=== PATIENT | female | born 1990 | race Caucasian/White ===

== ENCOUNTER 2021-10-26 08:00 | Observation (INO) | payer MEDICARE ==
[~2021-10-26] VITALS: Ht 162.6 cm; Wt 85.0 kg
[2021-10-26 08:24] LABS: COLLECTION METHOD CLEAN CATCH
[2021-10-26 08:31] LABS: BASO # 0.1 K/mm3 (0.0-0.2); BASO % 0.4 % (0.0-2.0); EOS # 0.1 K/mm3 (0.0-0.7); GRAN # 9.7 K/mm3 (1.4-6.5); GRAN % 78.1 % (42.2-75.2); HEMATOCRIT 38.9 % (37.0-47.0); HEMOGLOBIN 13.5 g/dl (12.5-16.0); LYMPH # 1.9 K/mm3 (1.2-3.4); LYMPH % 15.4 % (20.0-51.0); MEAN CELL VOLUME 89 fl (80.0-100.0); MEAN CORPUSCULAR HEMOGLOBIN 31 pg (27.0-31.0); MEAN CORPUSCULAR HGB CONC 35 g/dl (33.0-37.0); MEAN PLATELET VOLUME 9.9 fl (7.4-10.4); MONO # 0.6 K/mm3 (0.1-0.6); MONO % 4.7 % (1.7-9.3); PLATELET COUNT 240 K/mm3 (130-400); RED BLOOD COUNT 4.36 M/mm3 (4.10-5.30); REDCELL DISTRIBUTION WIDTH-CV 12.3 % (11.5-14.5)
[2021-10-26 08:36] LABS: MUCOUS Present (NOT PRESENT); PH 7 (5-8); URINE APPEARANCE Clear (CLEAR/HAZY); URINE BACTERIA None Seen (NONE SEEN); URINE BILIRUBIN Negative (NEGATIVE); URINE BLOOD Negative (NEGATIVE); URINE COLOR Yellow (YELLOW); URINE GLUCOSE Negative (NEGATIVE); URINE KETONE Negative (NEGATIVE); URINE LEUKOCYTE ESTERASE Trace (NEGATIVE); URINE NITRATE Negative (NEGATIVE); URINE PROTEIN(semi-quant) Negative (NEGATIVE); URINE RBC None Seen /hpf (0-2); URINE UROBILINOGEN Negative (NEGATIVE)
[2021-10-26 09:08] LABS: ALBUMIN 3.9 gm/dL (3.5-5.0); BILIRUBIN,TOTAL 0.9 mg/dL (0.2-1.2); CALCIUM 9.2 mg/dL (8.4-10.2); CREATININE, serum 0.75 mg/dL (0.57-1.11); POTASSIUM 3.9 mmol/L (3.5-4.5); TOTAL PROTEIN 7.6 gm/dL (6.2-8.1)
[2021-10-26 12:04] LABS: LACTATE DEHYDROGENASE 312 U/L (125-220); TRIGLYCERIDE 123 mg/dL (0-149)
[2021-10-26 14:54] VITALS: BP 111/66; PULSE 89; TEMP 98.8
[2021-10-26] MEDS ORDERED: SAPHRIS10 MG SL (15:33)
[2021-10-26] MEDS ORDERED: VISTARIL50 MG PO (15:34)
[2021-10-26] MEDS ORDERED: FLAGYL500 MG PO (15:34)
[2021-10-26] MEDS ORDERED: ZOVIRAX800 MG PO (15:35)
[2021-10-26 19:24] VITALS: BP 105/58; PULSE 80; TEMP 98.2
[2021-10-27] VITALS (7 sets, daily range): BP systolic 96–117; BP diastolic 50–84; PULSE 74–97; TEMP 97.7–98.7
--- NOTE | 2021-10-27 00:29 | NUR ---
PT IS SITTING UP IN BED AFTER TAKING A SHOWER, THIS RN REAPPLIED TELEMETRY LEADS. CRITICAL CARE CALLED SAYING PT WAS STILL OFF, THIS RN FOUND TELEMETRY BOX TO HAVE NO BATTERIES IN. THIS RN PLACED BATTERIES IN AND CHECKED LEADS. PT TOOK MEDICATIONS PRESCRIBED, PLEASANT AND CONVERSANT. CALL LIGHT IN REACH, NO OTHER NEEDS AT THIS TIME.
--- NOTE | 2021-10-27 06:36 | NUR ---
PT HAD AN UNEVENTFUL NIGHT. TOOK MORPHINE NEEDED FOR PAIN, LAST DOSE AROUND 0330. PT IS PLEASANT. THIS RN COULD NOT FIND PT OWN MEDICATION TO GIVE. WILL PASS TO DAY SHIFT.
[2021-10-27 08:17] LABS: BASO % 0.4 % (0.0-2.0); EOS # 0.2 K/mm3 (0.0-0.7); EOS % 2.8 % (0-4.0); GRAN # 5.8 K/mm3 (1.4-6.5); GRAN % 70.7 % (42.2-75.2); LYMPH # 1.7 K/mm3 (1.2-3.4); LYMPH % 20.4 % (20.0-51.0); MEAN CORPUSCULAR HGB CONC 33 g/dl (33.0-37.0); MONO # 0.5 K/mm3 (0.1-0.6); MONO % 5.5 % (1.7-9.3); PLATELET COUNT 196 K/mm3 (130-400); RED BLOOD COUNT 3.72 M/mm3 (4.10-5.30); REDCELL DISTRIBUTION WIDTH-CV 12.6 % (11.5-14.5)
[2021-10-27 08:24] LABS: HEMATOCRIT 35.2 % (37.0-47.0); MEAN CELL VOLUME 95 fl (80.0-100.0); MEAN CORPUSCULAR HEMOGLOBIN 31 pg (27.0-31.0)
[2021-10-27 08:26] LABS: HEMOGLOBIN 11.5 g/dl (12.5-16.0)
--- NOTE | 2021-10-27 14:41 | NUR ---
Initial visit; Patient requested a visit to help her sort through some thoughts about steps to take since she has decided to follow [facility]. She states she is well read Biblically and self taught though hasn't had the opportunity to finish her education. Damaged Freight Inspector helped her with a plan beginning with resources such as [employer] and a [facility] then developing a relationship with others, finding friends and people who can be role models and help her direct her path toward the work God has prepared for her. She thanked Damaged Freight Inspector for help and prayer.
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
--- NOTE | 2021-10-27 18:43 | NUR ---
PT TOLERATING LOW FAT DIET FOLLOWING EGD. PT WITH HIGH ANXIETY EPISODE REGARDING VITALS. HYDROXAZINE GIVEN TWICE THIS SHIFT. ANXIETY INPROVED. MELATONIN ORDERED FOR SLEEP TONIGHT. PROBABLE DISCHARGE BACK TO INTERMEDIATE TOMORROW WHEN CRITERIA MET.
--- NOTE | 2021-10-27 21:54 | NUR ---
PT RATING PAIN 07/06, TO SOON FOR DOSE, MICHAEL CALLED OKAY EARLY DOSE.
--- NOTE | 2021-10-27 23:36 | NUR ---
ALERT AND OX4. DENIES SOA, CHEST PAIN OR DIZZY. RATED PAIN TO BE EXTREME THIS EVENING. DOSED EARLY W OXYCODONE ADEN CHURCH FIRST. RATES 8/10 TO MIDDLE OF BACK. PM MEDS GIVEN. CALL LIGHT WI REACH.
[2021-10-28 04:02] VITALS: BP 115/60; PULSE 91; TEMP 97.8
--- NOTE | 2021-10-28 05:24 | NUR ---
RESTED THROUGH THE NIGHT WITHOUT INCIDENT. NEEDS ARE MET.
[2021-10-28 08:00] VITALS: BP 114/81; PULSE 100; TEMP 97.7
[2021-10-28] MEDS ORDERED: MELATONIN3 M1 PO (09:55)
--- NOTE | 2021-10-28 14:34 | NUR ---
The clinical team is ready to discharge the patient today. MOLLY met with the patient to review discharge plan. The patient states that she is going to hold off on returning to [place] right now and will be returning to [facility]. The patient reports that she has already talked to Roberto and they will be delivering her medications to [facility]. The patient states that she will just need transportation to [facility]. MOLLY provided the patient with a taxi voucher and contacted [facility]. MOLLY updated the patient's RN. MOLLY had notified [facility] that the patient would be returning today. No additional needs at this time.
--- NOTE | 2021-10-28 14:45 | NUR ---
PT MET CRITERIA FOR DISCHARGE, VSS. PAIN CONTROLLED. IV REMOVED WITH NO COMPLICATIONS, CATHETER INTACT. DISCHARGE INSTRUCTIONS GIVEN, PT VERBALIZED UNDERSTANDING. PT AWARE OF F/U TO MAKE WITH PCP AND OF PRESCRIPTIONS TO CERTIFIED NEURODIAGNOSTIC TECHNOLOGIST. PT DC BACK TO INTERMEDIATE HOUSE VIA AMBULATORY. CAB RIDE WAS ARRANGED.
[2021-11-08] MEDS ORDERED: MONODOX100 PO (11:38)
[2021-11-08] MEDS ORDERED: PROBIOTIC ACID1 EAC3 PO (11:38)
== END 2021-10-28 14:48 | disposition home or self-care (01) ==
LOC: COL.ER 08:00 → MEDICAL 11:04
PROVIDERS: Personal Emergency Response Attendant; Physician Assistant; ADMIT Internal Medicine
DX: K29.70 Gastritis, unspecified, without bleeding (principal); K29.80 Duodenitis without bleeding; K86.1 Other chronic pancreatitis; Z86.14 Personal history of Methicillin resistant Staphylococcus aureus infection; F10.21 Alcohol dependence, in remission; F41.9 Anxiety disorder, unspecified; B00.9 Herpesviral infection, unspecified; F17.210 Nicotine dependence, cigarettes, uncomplicated; N76.0 Acute vaginitis; F20.9 Schizophrenia, unspecified; Z79.899 Other long term (current) drug therapy
CPT/HCPCS: C9113; G0378; J2270; J2405; J2704; J7030; Q9967

== ENCOUNTER 2022-01-24 02:16 | Inpatient (IN) | payer MEDICARE, MEDICAID ==
[2022-01-24] VITALS (7 sets, daily range): BP systolic 106–132; BP diastolic 70–94; PULSE 67–95; TEMP 97.9–99
[~2022-01-24] VITALS: Ht 162.6 cm; Wt 82.2 kg
[~2022-01-24 02:16] MED LIST: FLAGYL500 MG PO; MELATONIN3 M1 PO; MONODOX100 PO; PROBIOTIC ACID1 EAC3 PO; SAPHRIS10 MG SL; VISTARIL50 MG PO; ZOVIRAX800 MG PO
[2022-01-24 02:49] LABS: BASO # 0.1 K/mm3 (0.0-0.2); BASO % 0.8 % (0.0-2.0); EOS # 0.1 K/mm3 (0.0-0.7); EOS % 1.4 % (0.0-4.0); GRAN # 3.2 K/mm3 (1.4-6.5); GRAN % 40.1 % (42.2-75.2); HEMATOCRIT 37.1 % (37.0-47.0); HEMOGLOBIN 12.8 g/dl (12.5-16.0); LYMPH # 4.1 K/mm3 (1.2-3.4); LYMPH % 51.1 % (20.0-51.0); MEAN CELL VOLUME 90 fl (80.0-100.0); MEAN CORPUSCULAR HEMOGLOBIN 31 pg (27-31); MEAN CORPUSCULAR HGB CONC 35 g/dl (33.0-37.0); MEAN PLATELET VOLUME 9.5 fl (7.4-10.4); MONO # 0.5 K/mm3 (0.1-0.6); MONO % 6.3 % (1.7-9.3); PLATELET COUNT 192 K/mm3 (130-400); RED BLOOD COUNT 4.11 M/mm3 (4.10-5.30); REDCELL DISTRIBUTION WIDTH-CV 14.4 % (11.5-14.5)
[2022-01-24 03:10] LABS: BILIRUBIN,TOTAL 0.5 mg/dL (0.2-1.2); C-REACTIVE PROTEIN 0.48 mg/dL (0.00-0.50); CALCIUM 8.9 mg/dL (8.4-10.2); CREATININE, serum 0.68 mg/dL (0.57-1.11); POTASSIUM 3.6 mmol/L (3.5-4.5)
[2022-01-24 05:04] LABS: COLLECTION METHOD CLEAN CATCH
[2022-01-24 05:11] LABS: PH 7 (5-8); SQUAMOUS EPITHELIAL None Seen /hpf (0-10); URINE APPEARANCE Clear (CLEAR/HAZY); URINE BACTERIA None Seen /hpf (NONE SEEN); URINE BILIRUBIN Negative (NEGATIVE); URINE BLOOD Negative (NEGATIVE); URINE COLOR Colorless (YELLOW); URINE GLUCOSE Negative (NEGATIVE); URINE KETONE Negative (NEGATIVE); URINE LEUKOCYTE ESTERASE Negative (NEGATIVE); URINE NITRATE Negative (NEGATIVE); URINE PROTEIN(semi-quant) Negative (NEGATIVE); URINE RBC None Seen /hpf (0-2); URINE UROBILINOGEN Negative (NEGATIVE)
[2022-01-24 05:14] LABS: PROTHROMBIN TIME 11.5 SECONDS (9.7-12.8)
[2022-01-24 05:17] LABS: PARTIAL THROMBOPLASTIN TIME 32.7 SECONDS (26.0-37.0)
[2022-01-24 05:18] LABS: TRICYCLIC ANTIDEPRESS URINE NEGATIVE
[2022-01-24 05:26] LABS: CHOLESTEROL RISK RATIO 1.9; MAGNESIUM 2.2 mg/dL (1.6-2.6); PHOSPHOROUS 2.7 mg/dL (2.3-4.7)
[2022-01-24] MEDS ORDERED: SAPHRIS10 MG SL (05:26)
[2022-01-24] MEDS ORDERED: MULTI VITAMINS1 TAB PO (06:25)
--- NOTE | 2022-01-24 06:34 | NUR ---
PATIENT UP TO ROOM 312. CHANGED INTO GOWN. IV FLUIDS STARTED TO L AC IV. SCHEDULED ACYCLOVIR GIVEN. C/O MODERATE ABD PAIN AND PRN DILAUDID GIVEN. VSS. ALERT AND ORIENTED. TELE REPORTING SR. MED RX COMPLETED. WILL HANDOFF TO DAYSHIFT.
--- NOTE | 2022-01-24 09:30 | NUR ---
Patient sitting up in bed, coloring, upon entering the room. Currently NPO, but given ice chips for dry mouth. At this time, patient does not have any complaints. Only concern is r/t vaginal symptoms (hx of BV and HSV2). Pelvic exam to be done by hospitalists. Patient given PRN dose of dilaudid for pain.
--- NOTE | 2022-01-24 13:18 | NUR ---
court worker met with patient to discuss discharge plan. Patient currently lives at home in [place] by herself, however her boyfriend is in the process of moving in. Patient is independent with her ADL's and does not utilize any DME to assist with mobility. Patient has no oxygen needs at home. PCP is Dr. Dixon and she utilizes [facility] for medications. Patient does not currently have a DPOA-HC established. She is legally and has no adult children. Educated patient that her legal NOK would be her parents. Patient verbalizes her understanding. Patient's etho use addressed. Patient reports that her depression is her trigger to her drinking. Patient reports that she is not interested in treatment through stating " i can discipline myself". Patient reports to doing both inpatient and outpatient rehab in the past and that "it did more harm then good". Patient does have an established MH provider at [place]. Discharge plan: Home
--- NOTE | 2022-01-24 20:30 | NUR ---
Initial shift assessment done- states abd pain 05/06- will give Dilaudid as ordered, also states is feeling anxious- detox score 4 so will give ativan 1mg po as ordered, IV fluids of NS at 75cc/hr, Tele on- SR, Alert/oriented, pleasant,
[2022-01-25] VITALS (10 sets, daily range): BP systolic 110–133; BP diastolic 64–84; PULSE 65–93; TEMP 97.8–98.7
--- NOTE | 2022-01-25 05:38 | NUR ---
Quiet night- did sleep for a few hours- Medicated for abdominal pain x3 with Dilaudid IV, Detox scores 1-4, medicated with Ativan p.o only once per scores- tolerating C.L diet.
--- NOTE | 2022-01-25 08:11 | NUR ---
Patient sitting up in bed upon entering the room. Dr. Esparza at the bedside for consult. Patient diet advanced from clear liquids to fat controlled. Patient remains A&Ox4 and independent. Patient received 1 dose of dilaudid so far for abdominal pain. Patient would like to shower today; Will call when she is ready to do so.
--- NOTE | 2022-01-25 10:38 | NUR ---
Initial visit; Patient thanked Bar Supervisor for looking in on her and recognizing her. Bar Supervisor listened to patient and spoke with her about her health and how she could help herself mentally. Bar Supervisor offered God's blessings. Patient appears receptive.
--- NOTE | 2022-01-25 16:42 | NUR ---
Patient changed from IV pain medication to PO; requesting pain medication frequently. Changed from clear liquid diet to low fat; tolerating this well. Patient denies any nausea or vomiting. Currently taking a shower.
--- NOTE | 2022-01-25 20:00 | NUR ---
Initial shift assessment done- pt states abd pain 7/10 tonight, was switched to po pain meds and does not want her to go back on the IV pain meds- she said she can wait the 1.5 hrs till her next dose of roxicodone. Also informed that we need a stool specimen- supplies in room- pt states will get sample tonight. SCD,s are ordered on patient- pt states she will try them- put on at this time. IV fluids of NS at 75cc/hr-
[2022-01-26 02:24] VITALS: BP 115/77; PULSE 89; TEMP 98.5
[2022-01-26 03:51] VITALS: BP 106/65; PULSE 83; TEMP 97.8
--- NOTE | 2022-01-26 06:43 | NUR ---
Did sleep for a few hours last night- getting po pain meds x2 this shift--detox score 1-4, Ativan po given just x1 before bed, tolerating some light foods- hopes to go home today.
[2022-01-26] MEDS ORDERED: FOLIC ACID 11 MG/TA1 PO (07:00)
[2022-01-26] MEDS ORDERED: THIAMINE 1100 MG/TAB PO (07:00)
--- NOTE | 2022-01-26 07:55 | NUR ---
AT BEDSIDE. PATIENT REPORTS SHE HAD SOME PAIN OVER NIGHT BUT OVERALL FEELS BETTER. WILL SEE HOW LOW FAT DIET GOES TODAY. PATIENT HOPING TO DISCHARGE HOME TODAY AT NOON. AWAITING HOSPITALIST TEAM TO ROUND THIS AM.
--- NOTE | 2022-01-26 08:00 | NUR ---
PATIENT IS A&O. VSS. PATIENT DENIES N/V BUT IS REQUESTING SOMETHING FOR ABD PAIN RATED AT 5-6 ON PAIN SCALE. GAVE PRN ROXICODONE WITH AM MEDS. BREAKFAST TRAY ORDERED. AM BS WAS 94. HEAD TO TOE ASSESSMENT WNL. DETOX SCORE OF 3. PATIENT HAS HX OF ETOH AND METH USE. STOOL PENDING. IV FLUIDS INFUSING INTO LEFT AC IV VIA PUMP. INDEPENDENT IN ROOM. PATIENT HOPING TO DISCHARGE HOME TODAY BY NOON. NO OTHER NEEDS AT THIS TIME. CALL LIGHT IN REACH.
[2022-01-26 08:02] VITALS: BP 121/69; PULSE 73; TEMP 97.9
[2022-01-26] MEDS ORDERED: ZOFRAN ODT4 MG PO (09:51)
[2022-01-26] MEDS ORDERED: ROXICODONE 55 MG/TAB PO (09:52)
--- NOTE | 2022-01-26 10:18 | NUR ---
Patient to discharge home today. No needs upon dc.
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
== END 2022-01-26 11:30 | disposition home or self-care (01) | DRG 439 ==
LOC: COL.ER 02:16 → MEDICAL 05:02
PROVIDERS: Emergency Medicine; Nurse Practitioner Family; ADMIT Student in an Organized Health Care Education/Training Program
DX: K86.1 Other chronic pancreatitis (principal); K86.3 Pseudocyst of pancreas; A54.02 Gonococcal vulvovaginitis, unspecified; F41.9 Anxiety disorder, unspecified; F20.9 Schizophrenia, unspecified; E87.6 Hypokalemia; F31.9 Bipolar disorder, unspecified; F90.9 Attention-deficit hyperactivity disorder, unspecified type; F17.210 Nicotine dependence, cigarettes, uncomplicated; F10.129 Alcohol abuse with intoxication, unspecified; A60.00 Herpesviral infection of urogenital system, unspecified; Y90.8 Blood alcohol level of 240 mg/100 ml or more; Z23 Encounter for immunization
CPT/HCPCS: 99223-AI; 99232-AI; 99239; C9113; J0696; J1170; J2270; J2405; J2550; J7030; Q9967

== ENCOUNTER 2022-02-23 02:26 | Emergency (ER) | payer MEDICARE, MEDICAID ==
[~2022-02-23] VITALS: Ht 162.6 cm; Wt 84.1 kg
[~2022-02-23 02:26] MED LIST changes: +FOLIC ACID 11 MG/TA1 PO; +MULTI VITAMINS1 TAB PO; +ROXICODONE 55 MG/TAB PO; +THIAMINE 1100 MG/TAB PO; +ZOFRAN ODT4 MG PO
[2022-02-23 02:33] VITALS: TEMP 98
[2022-02-23 03:04] LABS: BASO # 0.1 K/mm3 (0.0-0.2); BASO % 0.5 % (0.0-2.0); EOS # 0.2 K/mm3 (0.0-0.7); EOS % 1.5 % (0.0-4.0); GRAN # 6.4 K/mm3 (1.4-6.5); GRAN % 57.3 % (42.2-75.2); HEMOGLOBIN 14.8 g/dl (12.5-16.0); LYMPH % 35.8 % (20.0-51.0); MEAN CELL VOLUME 93 fl (80.0-100.0); MEAN CORPUSCULAR HEMOGLOBIN 32 pg (27-31); MEAN CORPUSCULAR HGB CONC 34 g/dl (33.0-37.0); MEAN PLATELET VOLUME 9.4 fl (7.4-10.4); MONO # 0.5 K/mm3 (0.1-0.6); MONO % 4.5 % (1.7-9.3); PLATELET COUNT 222 K/mm3 (130-400); RED BLOOD COUNT 4.63 M/mm3 (4.10-5.30); REDCELL DISTRIBUTION WIDTH-CV 14.7 % (11.5-14.5)
[2022-02-23 03:22] LABS: TRICYCLIC ANTIDEPRESS URINE NEGATIVE
[2022-02-23 03:27] LABS: ALBUMIN 4.3 gm/dL (3.5-5.0); BILIRUBIN,TOTAL 0.5 mg/dL (0.2-1.2); CALCIUM 9.3 mg/dL (8.4-10.2); CREATININE, serum 0.71 mg/dL (0.57-1.11); TOTAL PROTEIN 8.4 gm/dL (6.2-8.1)
[2022-02-23 05:05] VITALS: BP 145/92; PULSE 103
== END 2022-02-23 05:05 | disposition home or self-care (01) ==
LOC: COL.ER 02:26
PROVIDERS: Student in an Organized Health Care Education/Training Program
DX: O99.311 Alcohol use complicating pregnancy, first trimester (principal); Y90.7 Blood alcohol level of 200-239 mg/100 ml; Z3A.11 11 weeks gestation of pregnancy
CPT/HCPCS: J7030

== ENCOUNTER 2022-03-25 22:18 | Emergency (ER) | payer MEDICARE, MEDICAID ==
[2022-03-25 22:23] VITALS: TEMP 98.6
[2022-03-25 22:43] LABS: COLLECTION METHOD CLEAN CATCH
[2022-03-25 22:51] LABS: PH 6 (5-8); SQUAMOUS EPITHELIAL 0-2 /hpf (0-10); URINE APPEARANCE Clear (CLEAR/HAZY); URINE BACTERIA None Seen /hpf (NONE SEEN); URINE BILIRUBIN Negative (NEGATIVE); URINE BLOOD Negative (NEGATIVE); URINE COLOR Colorless (YELLOW); URINE GLUCOSE Negative (NEGATIVE); URINE KETONE Negative (NEGATIVE); URINE LEUKOCYTE ESTERASE Negative (NEGATIVE); URINE NITRATE Negative (NEGATIVE); URINE PROTEIN(semi-quant) Negative (NEGATIVE); URINE RBC 0-2 /hpf (0-2); URINE UROBILINOGEN Negative (NEGATIVE)
[2022-03-25 23:20] LABS: BASO # 0.1 K/mm3 (0.0-0.2); BASO % 0.5 % (0.0-2.0); EOS # 0.2 K/mm3 (0.0-0.7); EOS % 1.6 % (0.0-4.0); GRAN # 6.2 K/mm3 (1.4-6.5); GRAN % 64.7 % (42.2-75.2); HEMATOCRIT 40.1 % (37.0-47.0); HEMOGLOBIN 13.9 g/dl (12.5-16.0); LYMPH # 2.7 K/mm3 (1.2-3.4); LYMPH % 28.3 % (20.0-51.0); MEAN CELL VOLUME 92 fl (80.0-100.0); MEAN CORPUSCULAR HEMOGLOBIN 32 pg (27-31); MEAN CORPUSCULAR HGB CONC 35 g/dl (33.0-37.0); MEAN PLATELET VOLUME 9.4 fl (7.4-10.4); MONO # 0.5 K/mm3 (0.1-0.6); MONO % 4.7 % (1.7-9.3); PLATELET COUNT 253 K/mm3 (130-400); RED BLOOD COUNT 4.38 M/mm3 (4.10-5.30); REDCELL DISTRIBUTION WIDTH-CV 12.5 % (11.5-14.5)
[2022-03-25 23:35] LABS: TRICYCLIC ANTIDEPRESS URINE NEGATIVE
[2022-03-25 23:42] LABS: ALBUMIN 4.1 gm/dL (3.5-5.0); BILIRUBIN,TOTAL 0.7 mg/dL (0.2-1.2); C-REACTIVE PROTEIN 0.48 mg/dL (0.00-0.50); CALCIUM 8.6 mg/dL (8.4-10.2); CREATININE, serum 0.95 mg/dL (0.57-1.11); TOTAL PROTEIN 7.2 gm/dL (6.2-8.1)
[2022-03-26 01:55] VITALS: BP 116/64; PULSE 87
== END 2022-03-26 01:55 | disposition home or self-care (01) ==
LOC: COL.ER 22:18
PROVIDERS: Physician Assistant
DX: K29.20 Alcoholic gastritis without bleeding (principal); F10.20 Alcohol dependence, uncomplicated; F17.200 Nicotine dependence, unspecified, uncomplicated; Z87.19 Personal history of other diseases of the digestive system; Y90.5 Blood alcohol level of 100-119 mg/100 ml
CPT/HCPCS: J0780; J2270; J2405; J7030

== ENCOUNTER 2022-04-13 00:45 | Emergency (ER) | payer MEDICARE, MEDICAID ==
[~2022-04-13] VITALS: Ht 162.6 cm; Wt 84.1 kg
[2022-04-13 01:29] LABS: BASO % 0.4 % (0.0-2.0); EOS # 0.1 K/mm3 (0.0-0.7); EOS % 0.9 % (0.0-4.0); GRAN # 6.2 K/mm3 (1.4-6.5); GRAN % 58.1 % (42.2-75.2); HEMATOCRIT 40.7 % (37.0-47.0); HEMOGLOBIN 13.9 g/dl (12.5-16.0); LYMPH # 3.9 K/mm3 (1.2-3.4); MEAN CELL VOLUME 93 fl (80.0-100.0); MEAN CORPUSCULAR HEMOGLOBIN 32 pg (27-31); MEAN CORPUSCULAR HGB CONC 34 g/dl (33.0-37.0); MEAN PLATELET VOLUME 9.4 fl (7.4-10.4); MONO # 0.4 K/mm3 (0.1-0.6); MONO % 3.4 % (1.7-9.3); PLATELET COUNT 275 K/mm3 (130-400); RED BLOOD COUNT 4.36 M/mm3 (4.10-5.30); REDCELL DISTRIBUTION WIDTH-CV 11.9 % (11.5-14.5)
[2022-04-13 01:43] LABS: COLLECTION METHOD CLEAN CATCH
[2022-04-13 01:49] LABS: ALANINE AMINOTRANSFERASE 22 U/L (0-55); ALBUMIN 4.2 gm/dL (3.5-5.0); ALKALINE PHOSPHATASE 97 U/L (40-150); ANION GAP 12 mmol/L (7-16); AST,SGOT 17 U/L (5-34); BILIRUBIN,TOTAL 0.6 mg/dL (0.2-1.2); BLOOD UREA NITROGEN 8 mg/dL (7-19); CALCIUM 9.5 mg/dL (8.4-10.2); CARBON DIOXIDE 27 mmol/L (22-29); CHLORIDE 106 mmol/L (98-107); CREATININE, serum 0.74 mg/dL (0.57-1.11); GLUCOSE 99 mg/dL (70-99); POTASSIUM 3.7 mmol/L (3.5-4.5); SODIUM 145 mmol/L (136-145); TOTAL PROTEIN 7.6 gm/dL (6.2-8.1)
[2022-04-13 01:49] LABS: PH 7 (5-8); SQUAMOUS EPITHELIAL 0-2 /hpf (0-10); URINE APPEARANCE Clear (CLEAR/HAZY); URINE BACTERIA Rare /hpf (NONE SEEN); URINE BILIRUBIN Negative (NEGATIVE); URINE BLOOD Negative (NEGATIVE); URINE COLOR Colorless (YELLOW); URINE GLUCOSE Negative (NEGATIVE); URINE KETONE Negative (NEGATIVE); URINE LEUKOCYTE ESTERASE Negative (NEGATIVE); URINE NITRATE Negative (NEGATIVE); URINE PROTEIN(semi-quant) Negative (NEGATIVE); URINE RBC 0-2 /hpf (0-2); URINE UROBILINOGEN Negative (NEGATIVE)
[2022-04-13 01:59] LABS: TRICYCLIC ANTIDEPRESS URINE NEGATIVE
[2022-04-13 02:08] LABS: ALCOHOL(ethanol),MEDICAL 210 mg/dL (0-10); LIPASE 13 U/L (8-78)
[2022-04-13 02:10] LABS: ACETAMINOPHEN < 1.0 ug/mL (10-30); SALICYLATE < 5.0 mg/dL (15.0-30.0)
[2022-04-13 23:55] VITALS: TEMP 98.1
[2022-04-14 08:44] VITALS: BP 119/91; PULSE 79
== END 2022-04-14 08:44 ==
LOC: COL.ER 00:45
PROVIDERS: Physician Assistant
DX: O9A.419 Sexual abuse complicating pregnancy, unspecified trimester (principal); O99.340 Other mental disorders complicating pregnancy, unspecified trimester; F53.1 Puerperal psychosis; O99.310 Alcohol use complicating pregnancy, unspecified trimester; O99.330 Smoking (tobacco) complicating pregnancy, unspecified trimester; F17.290 Nicotine dependence, other tobacco product, uncomplicated; Z28.311 Partially vaccinated for COVID-19; Y90.7 Blood alcohol level of 200-239 mg/100 ml; Z3A.00 Weeks of gestation of pregnancy not specified
CPT/HCPCS: J2060; J7030

== ENCOUNTER 2022-05-06 13:56 | Emergency (ER) | payer MEDICARE, MEDICAID ==
[~2022-05-06] VITALS: Ht 162.6 cm; Wt 75.0 kg
[2022-05-06 14:25] VITALS: TEMP 98.3
[2022-05-06 15:48] LABS: COLLECTION METHOD CLEAN CATCH
[2022-05-06 15:54] LABS: PH 6 (5-8); URINE APPEARANCE Hazy (CLEAR/HAZY); URINE BACTERIA None Seen /hpf (NONE SEEN); URINE BILIRUBIN Negative (NEGATIVE); URINE BLOOD Negative (NEGATIVE); URINE COLOR Yellow (YELLOW); URINE GLUCOSE Negative (NEGATIVE); URINE KETONE Negative (NEGATIVE); URINE LEUKOCYTE ESTERASE Negative (NEGATIVE); URINE NITRATE Negative (NEGATIVE); URINE PROTEIN(semi-quant) Negative (NEGATIVE); URINE RBC 0-2 /hpf (0-2); URINE UROBILINOGEN Negative (NEGATIVE)
[2022-05-06 18:30] VITALS: BP 117/77; PULSE 98
== END 2022-05-06 18:30 | disposition home or self-care (01) ==
LOC: COL.ER 13:56
PROVIDERS: Physician Assistant
DX: O26.899 Other specified pregnancy related conditions, unspecified trimester (principal); N89.8 Other specified noninflammatory disorders of vagina; R10.12 Left upper quadrant pain; Z3A.00 Weeks of gestation of pregnancy not specified

== ENCOUNTER → 2022-05-10 | Outpatient (CLI) | payer MEDICARE, MEDICAID | LOC: COL.RAD 13:43 | DX: O26.891 Other specified pregnancy related conditions, first trimester (principal); R33.9 Retention of urine, unspecified; Z3A.08 8 weeks gestation of pregnancy ==

== ENCOUNTER 2022-05-12 15:12 | Emergency (ER) | payer MEDICARE, MEDICAID ==
[~2022-05-12] VITALS: Ht 162.6 cm; Wt 79.5 kg
[2022-05-12 15:34] VITALS: TEMP 98.4
[2022-05-12] MEDS ORDERED: AMOXICILLIN 50500 MG PO (16:10)
[2022-05-12 16:13] VITALS: BP 135/79; PULSE 100
== END 2022-05-12 16:15 | disposition home or self-care (01) ==
LOC: COL.ER 15:12
DX: R33.9 Retention of urine, unspecified (principal); Z88.1 Allergy status to other antibiotic agents

== ENCOUNTER 2022-08-10 16:32 | Outpatient (CLI) | payer MEDICARE, MEDICAID ==
[~2022-08-10] VITALS: Ht 162.6 cm; Wt 81.4 kg
--- NOTE | 2022-08-10 16:30 | NUR ---
PT ARRIVES TO LR2. CHANGED INTO CLEAN GOWN. PT COMPLAINING OF LOWER BACK AND ABDOMINAL PAIN. PT DENIES ANY VAGINAL BLEEDING, DECREASED MOVEMENT, LEAKING OF FLUID OR CONTRACTIONS. FHR MONITOR/TOCO APPLIED. VITAL SIGNS WNL. A FEBRILE. 1650 SVE BY THIS RN CLOSED/THICK
[~2022-08-10 16:32] MED LIST changes: +AMOXICILLIN 50500 MG PO
[2022-08-10 17:00] VITALS: BP 120/69; PULSE 106; TEMP 98.8
--- NOTE | 2022-08-10 17:22 | NUR ---
FHR MONITOR RECORDING MATERNAL HEART RATE DUE TO MATERNAL POSITION
[2022-08-10 17:34] LABS: COLLECTION METHOD CLEAN CATCH
[2022-08-10 17:35] VITALS: PULSE 98
[2022-08-10 17:39] LABS: BASO % 0.4 % (0.0-2.0); EOS # 0.1 K/mm3 (0.0-0.7); EOS % 0.6 % (0.0-4.0); GRAN # 8.3 K/mm3 (1.4-6.5); GRAN % 75.8 % (42.2-75.2); HEMOGLOBIN 12.2 g/dl (12.5-16.0); LYMPH # 2.1 K/mm3 (1.2-3.4); LYMPH % 19.3 % (20.0-51.0); MEAN CELL VOLUME 93 fl (80.0-100.0); MEAN CORPUSCULAR HEMOGLOBIN 32 pg (27-31); MEAN CORPUSCULAR HGB CONC 35 g/dl (33.0-37.0); MEAN PLATELET VOLUME 9.9 fl (7.4-10.4); MONO # 0.4 K/mm3 (0.1-0.6); MONO % 3.4 % (1.7-9.3); PLATELET COUNT 163 K/mm3 (130-400); RED BLOOD COUNT 3.79 M/mm3 (4.10-5.30); REDCELL DISTRIBUTION WIDTH-CV 13.6 % (11.5-14.5)
[2022-08-10 17:43] LABS: HEMATOCRIT 35.2 % (37.0-47.0)
[2022-08-10 17:44] LABS: SQUAMOUS EPITHELIAL 0-2 /hpf (0-10); URINE BACTERIA None Seen /hpf (NONE SEEN); URINE RBC None Seen /hpf (0-2)
[2022-08-10 17:45] LABS: PH 5.5 (5.0-8.5); URINE APPEARANCE Clear (CLEAR/HAZY); URINE COLOR Yellow (YELLOW); URINE PROTEIN(semi-quant) Negative (NEGATIVE)
[2022-08-10 17:46] LABS: URINE BLOOD Negative (NEGATIVE); URINE GLUCOSE Negative (NEGATIVE); URINE KETONE Negative (NEGATIVE); URINE NITRATE Negative (NEGATIVE); URINE UROBILINOGEN 0.2 E.U/dL (0.2-1.0)
[2022-08-10 18:02] LABS: ALBUMIN 3.2 gm/dL (3.5-5.0); BILIRUBIN,TOTAL 0.5 mg/dL (0.2-1.2); CALCIUM 9.1 mg/dL (8.4-10.2); CREATININE, serum 0.58 mg/dL (0.57-1.11); POTASSIUM 3.9 mmol/L (3.5-4.5); TOTAL PROTEIN 6.5 gm/dL (6.2-8.1)
== END 2022-08-10 18:23 | disposition home or self-care (01) ==
LOC: LDRO 16:32
PROVIDERS: Obstetrics & Gynecology
DX: O99.891 Other specified diseases and conditions complicating pregnancy (principal); Z3A.22 22 weeks gestation of pregnancy